=== PATIENT | female | born 1940 | race Caucasian/White ===

== ENCOUNTER 2017-06-05 08:44 | Outpatient (CLI) | payer MEDICARE, MEDICAID ==
[~2017-06-05] VITALS: Ht 160 cm; Wt 84.2 kg
[2017-06-05 09:31] VITALS: BP 125/59; PULSE 57; TEMP 98
[2017-06-05] MEDS ORDERED: GLUCOTROL10 MG PO (09:33)
[2017-06-05] MEDS ORDERED: NIRAVAM1 MG PO (09:33)
[2017-06-05] MEDS ORDERED: LOPRESSOR 550 MG/TAB PO (09:34)
[2017-06-05] MEDS ORDERED: PRINIVIL40 MG PO (09:34)
[2017-06-05] MEDS ORDERED: ZANTAC 300300 MG PO (09:36)
[2017-06-05] MEDS ORDERED: ZOLOFT 100MG100 MG PO (09:36)
[2017-06-05] MEDS ORDERED: ZOCOR 20MG20 MG PO (09:36)
[2017-06-05] MEDS ORDERED: ASPIRIN E.C. 8181 MG PO (09:37)
[2017-06-05] MEDS ORDERED: CLEOCIN HCL300 MG PO (10:23)
== END 2017-06-05 11:58 | disposition home or self-care (01) ==
LOC: COL.CAR 08:44
DX: R06.02 Shortness of breath (principal); I35.0 Nonrheumatic aortic (valve) stenosis; I27.20 Pulmonary hypertension, unspecified; I47.1 Supraventricular tachycardia; Z88.0 Allergy status to penicillin

== ENCOUNTER → 2017-09-11 | Outpatient (CLI) | payer MEDICARE, MEDICAID ==
[~2017-09-11] MED LIST: ASPIRIN E.C. 8181 MG PO; CLEOCIN HCL300 MG PO; GLUCOTROL10 MG PO; LOPRESSOR 550 MG/TAB PO; NIRAVAM1 MG PO; PRINIVIL40 MG PO; ZANTAC 300300 MG PO; ZOCOR 20MG20 MG PO; ZOLOFT 100MG100 MG PO
== END ==
LOC: COL.PUL 11:57
DX: I27.20 Pulmonary hypertension, unspecified (principal)
CPT/HCPCS: A9539; A9540; J7674

== ENCOUNTER 2020-01-08 07:15 | Day surgery (SDC) | payer MEDICARE, MEDICAID ==
[~2020-01-08] VITALS: Ht 160 cm; Wt 87.0 kg
[2020-01-08] VITALS (10 sets, daily range): BP systolic 139–178; BP diastolic 55–99; PULSE 18–82; TEMP 98.2
[2020-01-08 08:34] LABS: HEMATOCRIT 40.6 % (37.0-47.0); HEMOGLOBIN 12.2 g/dl (12.5-16.0); MEAN CELL VOLUME 83 fl (80.0-100.0); MEAN CORPUSCULAR HEMOGLOBIN 25 pg (27.0-31.0); MEAN CORPUSCULAR HGB CONC 30 g/dl (33.0-37.0); MEAN PLATELET VOLUME 9.8 fl (7.4-10.4); PLATELET COUNT 167 K/mm3 (130-400); REDCELL DISTRIBUTION WIDTH-CV 13.2 % (11.5-14.5)
[2020-01-08 08:40] LABS: INR 1.1 (0.8-3.0)
[2020-01-08 08:44] LABS: CALCIUM 9.2 mg/dL (8.4-10.2); CREATININE, serum 1.08 (0.52-1.25); POTASSIUM 4.2 mmol/L (3.4-5.0)
[2020-01-08] MEDS ORDERED: XANAX 1MG1 MG PO (08:44)
[2020-01-08] MEDS ORDERED: RT ADVAIR HFA 1112 G IH (08:44)
[2020-01-08] MEDS ORDERED: HCTZ12.5TAB PO (08:47)
[2020-01-08] MEDS ORDERED: VENTOLIN0.09 MG IH (08:47)
[2020-01-08] MEDS ORDERED: PRIL40 PO (08:50)
[2020-01-08] MEDS ORDERED: ACTOS 15MG TAB15 MG PO (09:03)
--- NOTE | 2020-01-08 10:35 | NUR ---
SEE MERGE DOCUMENTATION FOR MEDICATION ADMINISTRATION TIMES AND INTRA/POST PROCEDURE SEDATION ASSESSMENTS. RIGHT RADIAL BARBEAU TEST POSITIVE.
[2020-01-08] MEDS ORDERED: ZOCOR 20MG20 MG PO (11:27)
--- NOTE | 2020-01-08 11:35 | NUR ---
Rt groin venous puncture site remains soft to palpation. Dressing is clean, dry and intact.
--- NOTE | 2020-01-08 12:20 | NUR ---
Small area of bright red blood noted to dressing over rt groin venous puncture site. Area is smaller than a dime. Groin remains soft to palpation. Meal tray provided. [id number] remains at bedside assisting pt as needed. Call light in reach.
--- NOTE | 2020-01-08 14:20 | NUR ---
Dressing to rt groin venous puncture site changed with sterile, folded 4x4 covered with tegaderm. Previous dressing had quarter sized area of blood noted. No active bleeding at site, and it remains soft to palpation.
--- NOTE | 2020-01-08 14:45 | NUR ---
Air from TR band has been released in 2ml increments with no bleeding at site. Site dressed with 2x2, bandaid. Dressing to rt groin remains clean, dry and intact. INT removed with catheter intact, and bleeding controlled at site.
--- NOTE | 2020-01-08 14:55 | NUR ---
Pt assisted out by wheelchair to son's car. [id number] accompanies with personal belongings. DC instructions were reviewed with both pt and daughter- in-law, both express understanding.
== END 2020-01-08 14:55 | disposition home or self-care (01) ==
LOC: COL.CAR
PROVIDERS: Internal Medicine Cardiovascular Disease
DX: I25.10 Atherosclerotic heart disease of native coronary artery without angina pectoris (principal); I27.20 Pulmonary hypertension, unspecified; I08.3 Combined rheumatic disorders of mitral, aortic and tricuspid valves; I10 Essential (primary) hypertension; E78.5 Hyperlipidemia, unspecified; I47.1 Supraventricular tachycardia; G47.33 Obstructive sleep apnea (adult) (pediatric); F41.9 Anxiety disorder, unspecified; E11.9 Type 2 diabetes mellitus without complications; Z88.1 Allergy status to other antibiotic agents; Z88.0 Allergy status to penicillin; Z87.891 Personal history of nicotine dependence; Z79.82 Long term (current) use of aspirin
CPT/HCPCS: J1644; J2250; J2704; J3010; Q9967

== ENCOUNTER 2020-03-26 07:36 | Day surgery (SDC) | payer MEDICARE, MEDICAID ==
[2020-03-26] VITALS (274 sets, daily range): BP systolic 125–179; BP diastolic 65–100; PULSE 65–89; TEMP 97.9–98.5; O2SAT 88–100
[~2020-03-26] VITALS: Ht 160 cm; Wt 86.8 kg
[~2020-03-26 07:36] MED LIST changes: +ACTOS 15MG TAB15 MG PO; +HCTZ12.5TAB PO; +PRIL40 PO; +RT ADVAIR HFA 1112 G IH; +VENTOLIN0.09 MG IH; +XANAX 1MG1 MG PO
[2020-03-26 08:47] LABS: HEMATOCRIT 38.2 % (37.0-47.0); HEMOGLOBIN 11.6 g/dl (12.5-16.0); MEAN CELL VOLUME 82 fl (80.0-100.0); MEAN CORPUSCULAR HEMOGLOBIN 25 pg (27.0-31.0); MEAN CORPUSCULAR HGB CONC 30 g/dl (33.0-37.0); MEAN PLATELET VOLUME 9.6 fl (7.4-10.4); PLATELET COUNT 173 K/mm3 (130-400); RED BLOOD COUNT 4.66 M/mm3 (4.10-5.30); REDCELL DISTRIBUTION WIDTH-CV 13.5 % (11.5-14.5)
[2020-03-26 08:56] LABS: INR 1.1 (0.8-3.0); PROTHROMBIN TIME 12.3 SECONDS (9.7-12.8)
[2020-03-26 08:58] LABS: CALCIUM 9.3 mg/dL (8.4-10.2); CREATININE, serum 0.98 (0.52-1.25)
--- NOTE | 2020-03-26 10:12 | NUR ---
SEE MERGE FOR ALL MEDICATION ADMIN. TIMES, INTRA AND POST SEDATION ASSESSMENTS
--- NOTE | 2020-03-26 19:30 | NUR ---
3 CC'S OF AIR REMOVED FROM TR BAND. NO BLEEDING, SWELLING OR HEMATOMA NOTED. PULSES STRONG. WILL CONTINUE TO MONITOR.
--- NOTE | 2020-03-26 21:30 | NUR ---
2 CC'S OF AIR REMOVED FROM TR BAND. NO SWELLING, BLEEDING, OR HEMATOMA NOTED. PULSES STRONG. WILL CONTINUE TO MONITOR.
[2020-03-27] VITALS (525 sets, daily range): BP systolic 157–167; BP diastolic 76–81; PULSE 66–84; TEMP 97.8–98; O2SAT 96–100
--- NOTE | 2020-03-27 02:00 | NUR ---
PT TR Band off at this time. No bleeding, swelling, or hematoma noted. Pulses strong. Will continue to monitor.
[2020-03-27 05:44] LABS: BASO % 0.5 % (0.0-2.0); EOS # 0.2 (0.0-0.7); EOS % 3.7 % (0-4.0); GRAN # 4.4 (1.4-6.5); GRAN % 67.9 % (42.2-75.2); HEMOGLOBIN 11.5 g/dl (12.5-16.0); LYMPH # 1.3 (1.2-3.4); LYMPH % 19.6 % (20.0-51.0); MEAN CELL VOLUME 83 fl (80.0-100.0); MEAN CORPUSCULAR HEMOGLOBIN 26 pg (27.0-31.0); MEAN CORPUSCULAR HGB CONC 31 g/dl (33.0-37.0); MEAN PLATELET VOLUME 9.8 fl (7.4-10.4); MONO # 0.5 (0.1-0.6); MONO % 7.8 % (1.7-9.3); PLATELET COUNT 156 K/mm3 (130-400); RED BLOOD COUNT 4.48 M/mm3 (4.10-5.30); REDCELL DISTRIBUTION WIDTH-CV 13.8 % (11.5-14.5)
[2020-03-27 06:10] LABS: CALCIUM 9.2 mg/dL (8.4-10.2); CREATININE, serum 0.98 (0.52-1.25); POTASSIUM 3.8 mmol/L (3.4-5.0)
--- NOTE | 2020-03-27 07:23 | NUR ---
PT rested well throughout the evening. Got up several times to use the restroom, stand by assist provided. Cath site is clean, dry, no hematoma or bleeding noted. PT is now sitting at the side of the bed eating breakfast. Report given to JESSY Kuhn.
--- NOTE | 2020-03-27 08:56 | NUR ---
Patient has been up to the commode; ate breakfast and is currently resting in bed. Patient is alert and oriented x 3. She is frisian speaking but understands Chadian fairly well. Her skin is w/d. Color normal. Lungs CTA with resp even/unlabored. HR strong/regular. Denies any c/o pain and/or discomfort. TR band off right radial site. No noted bruising/pain/swelling noted. Abd rounded soft with bowel sounds x 4 quads. Voids without any difficulty Ambulates with SBA. No other needs at this time. Nitro stopped at 0825
--- NOTE | 2020-03-27 09:48 | NUR ---
Pt is resting in bed A/OX3. Denies pain or shortness of breath. Radial site soft, non tender with pulse +2 and CMS intact. Pt spoke with her family this morning to let them know she would be discharged later today. Pt has a ride home whenever she is cleared for discharge. Pt remains in sinus rhythm in the 80's with stable pressures and oxygenation. Pt getting up to the restroom with a steady gait and good balance. Pt reports having a good appetite this morning and is ready to go home.
--- NOTE | 2020-03-27 12:13 | NUR ---
Dr. De Santiago contacted and to come in to discharge pt shortly.
--- NOTE | 2020-03-27 13:36 | NUR ---
Pt assisted to the BR with a stead gait and good balance. Radial site stable. Pt anticipating discharge later today.
[2020-03-27] MEDS ORDERED: BRILINTA90 MG PO (13:58)
[2020-03-27] MEDS ORDERED: ASPIRIN E.C. 8181 MG PO (13:59)
--- NOTE | 2020-03-27 15:05 | NUR ---
Dr. De Santiago here and discharg orders received. Pharmacy verified and pt to pharmacy picking technician Brilinta this evening. IV removed and pt dressed. Discharge instructions reveiwed with pt who verablized understanding. Copy of discharge papers provided to pt. Pt assisted via wheelchair to POV with Family to drive her.
== END 2020-03-27 15:10 | disposition home or self-care (01) ==
LOC: COL.CAR 07:36 → ICU 11:28 → COL.CAR 03-27 15:10
PROVIDERS: Internal Medicine Cardiovascular Disease
DX: I25.10 Atherosclerotic heart disease of native coronary artery without angina pectoris (principal); I10 Essential (primary) hypertension; E78.5 Hyperlipidemia, unspecified; I08.0 Rheumatic disorders of both mitral and aortic valves; I47.1 Supraventricular tachycardia; I27.20 Pulmonary hypertension, unspecified; Z88.1 Allergy status to other antibiotic agents; Z88.0 Allergy status to penicillin; Z79.82 Long term (current) use of aspirin; Z79.84 Long term (current) use of oral hypoglycemic drugs; Z87.891 Personal history of nicotine dependence
CPT/HCPCS: OP; C9600; J0583; J1644; J3010

== ENCOUNTER 2021-12-16 11:26 | Day surgery (SDC) | payer MEDICARE, MEDICAID ==
[2021-12-16] VITALS (493 sets, daily range): BP systolic 139–296; BP diastolic 64–84; PULSE 73–80; TEMP 98–98.5; O2SAT 76–100
[~2021-12-16] VITALS: Ht 157.5 cm; Wt 80.6 kg
[~2021-12-16 11:26] MED LIST changes: +BRILINTA90 MG PO; +GLUCOTROL 5M5 MG/TAB PO; -GLUCOTROL10 MG PO; +LOPRESSOR 225 MG/TAB PO; -LOPRESSOR 550 MG/TAB PO; -PRIL40 PO; +PROTONIX 40MG T40 MG PO
[2021-12-16 12:28] LABS: MEAN CELL VOLUME 78 fl (80.0-100.0); MEAN CORPUSCULAR HEMOGLOBIN 24 pg (27-31); MEAN CORPUSCULAR HGB CONC 30 g/dl (33.0-37.0); MEAN PLATELET VOLUME 9.4 fl (7.4-10.4); PLATELET COUNT 198 K/mm3 (130-400); REDCELL DISTRIBUTION WIDTH-CV 16.1 % (11.5-14.5)
[2021-12-16] MEDS ORDERED: CARDIZEM CD 18180 MG PO (12:35)
[2021-12-16] MEDS ORDERED: DESYREL 100MG100 MG PO (12:35)
[2021-12-16] MEDS ORDERED: ASPIRIN 81M81 MG/TA2 PO (12:37)
[2021-12-16 12:38] LABS: HEMATOCRIT 32.9 % (37.0-47.0)
[2021-12-16 12:42] LABS: CALCIUM 9.5 mg/dL (8.4-10.2); CREATININE, serum 0.85 mg/dL (0.57-1.11); POTASSIUM 4.2 mmol/L (3.5-4.5)
[2021-12-16 12:59] LABS: INR 1.2 (0.8-3.0); PROTHROMBIN TIME 13.4 SECONDS (9.7-12.8)
--- NOTE | 2021-12-16 13:00 | NUR ---
REPORT TO JESSY PAINTING
[2021-12-16 13:01] LABS: PARTIAL THROMBOPLASTIN TIME 28.5 SECONDS (26.0-37.0)
--- NOTE | 2021-12-16 14:20 | NUR ---
See merge for all medication, assessment, intervention, and vital sign times.
--- NOTE | 2021-12-16 15:45 | NUR ---
Pt arrived to room ICU 7 w/ family at bedside. Pt doesn't appear to be in distress. VSS. Pt A&O. IVF & gtt running per order w/o issues. Pt has rt radial site with TR band and 14ml air, no bleeding noted, circulation WNL. Pt also has rt groin site, CDI, soft to touch, no hematoma noted.
[2021-12-17] VITALS (537 sets, daily range): BP systolic 124–146; BP diastolic 70–87; PULSE 77–81; TEMP 98.1–98.7; O2SAT 82–100
[2021-12-17 06:06] LABS: BASO % 0.5 % (0.0-2.0); EOS # 0.2 K/mm3 (0.0-0.7); EOS % 3.8 % (0.0-4.0); GRAN # 4.8 K/mm3 (1.4-6.5); GRAN % 76.2 % (42.2-75.2); LYMPH # 0.8 K/mm3 (1.2-3.4); LYMPH % 13.2 % (20.0-51.0); MEAN CORPUSCULAR HGB CONC 29 g/dl (33.0-37.0); MEAN PLATELET VOLUME 9.2 fl (7.4-10.4); MONO # 0.4 K/mm3 (0.1-0.6); MONO % 6.1 % (1.7-9.3); PLATELET COUNT 170 K/mm3 (130-400); RED BLOOD COUNT 3.75 M/mm3 (4.10-5.30); REDCELL DISTRIBUTION WIDTH-CV 16.2 % (11.5-14.5)
[2021-12-17 06:11] LABS: HEMOGLOBIN 8.9 g/dl (12.5-16.0); MEAN CELL VOLUME 83 fl (80.0-100.0); MEAN CORPUSCULAR HEMOGLOBIN 24 pg (27-31)
[2021-12-17 06:24] LABS: CREATININE, serum 0.83 mg/dL (0.57-1.11); POTASSIUM 4.3 mmol/L (3.5-4.5)
--- NOTE | 2021-12-17 12:55 | NUR ---
PT EDUCATED ON DISCHARGE MATERIALS. PT UNDERSTANDS DISCHARGE INSTRUCTIONS. PT IV DISCONTINUED. PT DISCHARGED AND HAS LEFT THE UNIT.
--- NOTE | 2021-12-19 09:28 | NUR ---
RE:REFERRAL TO CARDIAC REAHB SENT TO [facility] FOR FOLLOW UP BY STAFF.
== END 2021-12-17 12:55 ==
LOC: COL.CAR 11:26 → ICU 15:21 → COL.CAR 12-17 12:55
PROVIDERS: Internal Medicine Cardiovascular Disease
DX: I25.10 Atherosclerotic heart disease of native coronary artery without angina pectoris (principal); I10 Essential (primary) hypertension; I25.2 Old myocardial infarction; I08.3 Combined rheumatic disorders of mitral, aortic and tricuspid valves; I27.20 Pulmonary hypertension, unspecified; J98.4 Other disorders of lung; G47.33 Obstructive sleep apnea (adult) (pediatric); K21.9 Gastro-esophageal reflux disease without esophagitis; E11.9 Type 2 diabetes mellitus without complications; Z79.84 Long term (current) use of oral hypoglycemic drugs; Z95.5 Presence of coronary angioplasty implant and graft; Z79.899 Other long term (current) drug therapy
CPT/HCPCS: OP; C1725; C1769; C1887; C1894; J0583; J2250; J2704; J3010